=== PATIENT | male | born 1950 | race Asian ===

== ENCOUNTER → 2016-11-02 | Outpatient (CLI) | payer BC ==
[~2016-11-02] MED LIST: ACET-749 PO; AMLO-114 PO; ASPI81TA28 PO; CLC100 PO; LISI-729 PO
[2016-11-02 10:10] LABS: HEMATOCRIT 41.7 % (42-52); MEAN CELL VOLUME 92.1 fL (80-100); MEAN CORPUSCULAR HEMOGLOBIN 32.5 pg (25-34); MEAN CORPUSCULAR HGB CONC 35.3 g/dl (32-36); MEAN PLATELET VOLUME 9.1 fL (7.4-10.4); PLATELET COUNT 223 K/uL (130-400); RED BLOOD COUNT 4.53 M/uL (4.7-6.1)
[2016-11-02 10:16] LABS: URINE APPEARANCE CLEAR (CLEAR); URINE BILIRUBIN NEG (NEG); URINE COLOR YELLOW; URINE NITRITE NEG (NEG); URINE SPECIFIC GRAVITY 1.018 (1.000-1.030); UROBILINOGEN NEG (NEG)
[2016-11-02 10:32] LABS: MANUAL MICROSCOPIC REQUIRED? NO; REVIEW REQ? NO
[2016-11-02 10:44] LABS: URINE PROTIEN/CREAT RATIO 0.5 (0-0.2); URINE TOTAL PROTEIN 65.3 mg/dl (0-11.9)
[2016-11-02 11:21] LABS: ALT/SGPT 23 U/L (12-78); AST/SGOT 13 U/L (15-37); BLOOD UREA NITROGEN 21 mg/dl (7-18); BUN/CREATININE RATIO 15.2 (10-20); CALCIUM 8.6 mg/dl (8.5-10.1); CARBON DIOXIDE 28 mmol/L (21-32); CHLORIDE 108 mmol/L (98-107); GLUCOSE 96 mg/dl (70-99); SODIUM 143 mmol/L (136-145)
[2016-11-02 11:24] LABS: ALB/GLOB RATIO 1.1 (0.9-2); ALKALINE PHOSPHATASE 84 U/L (45-117); CHOLESTEROL 209 mg/dl (0-200); CHOLESTEROL/HDL RATIO 3.7; HDL CHOLESTEROL 57 mg/dl; LDL CHOLESTEROL CALCULATED 128 mg/dl; PHOSPHORUS 2.4 mg/dl (2.5-4.9); TRIGLYCERIDES 121 mg/dl (0-150); VERY LOW DENSITY LIPOPROT CALC 24 mg/dl
== END | disposition home or self-care (01) ==
LOC: C.LAB1850 09:09
PROVIDERS: ATTEND Family Medicine
DX: Z00.00 Encounter for general adult medical examination without abnormal findings (principal); E55.9 Vitamin D deficiency, unspecified

== ENCOUNTER → 2017-05-13 | Outpatient (CLI) | payer BC ==
[2017-05-13 12:11] LABS: HEMATOCRIT 42.7 % (42-52); MEAN CELL VOLUME 94.5 fL (80-100); MEAN CORPUSCULAR HEMOGLOBIN 32.5 pg (25-34); MEAN CORPUSCULAR HGB CONC 34.4 g/dl (32-36); MEAN PLATELET VOLUME 9.7 fL (7.4-10.4); PLATELET COUNT 213 K/uL (130-400); RED BLOOD COUNT 4.52 M/uL (4.7-6.1); WHITE BLOOD COUNT 5.73 K/uL (4.8-10.8)
[2017-05-13 12:23] LABS: BLOOD UREA NITROGEN 22 mg/dl (7-18); BUN/CREATININE RATIO 14.7 (10-20); CALCIUM 9.5 mg/dl (8.5-10.1); CARBON DIOXIDE 30 mmol/L (21-32); CHLORIDE 105 mmol/L (98-107); GLUCOSE 113 mg/dl (70-99); POTASSIUM 3.8 mmol/L (3.5-5.1); SODIUM 139 mmol/L (136-145)
[2017-05-13 12:27] LABS: CHOLESTEROL 205 mg/dl (0-200); CHOLESTEROL/HDL RATIO 3.6; HDL CHOLESTEROL 57 mg/dl; LDL CHOLESTEROL CALCULATED 114 mg/dl; PHOSPHORUS 2.7 mg/dl (2.5-4.9); TRIGLYCERIDES 170 mg/dl (0-150); VERY LOW DENSITY LIPOPROT CALC 34 mg/dl
[2017-05-13 14:18] LABS: URINE APPEARANCE CLEAR (CLEAR); URINE BILIRUBIN NEG (NEG); URINE COLOR YELLOW; URINE NITRITE NEG (NEG); URINE PH 5.5 (4.5-7.5); URINE PROTIEN/CREAT RATIO 0.2 (0-0.2); URINE SPECIFIC GRAVITY 1.022 (1.000-1.030); URINE TOTAL PROTEIN 37.2 mg/dl (0-11.9); UROBILINOGEN NEG (NEG)
[2017-05-13 14:21] LABS: MANUAL MICROSCOPIC REQUIRED? NO; REVIEW REQ? NO
== END | disposition home or self-care (01) ==
LOC: C.LAB1850 10:32
PROVIDERS: ATTEND Internal Medicine Nephrology
DX: D17.71 Benign lipomatous neoplasm of kidney (principal); N18.3 Chronic kidney disease, stage 3 (moderate); Z86.2 Personal history of diseases of the blood and blood-forming organs and certain disorders involving the immune mechanism; I10 Essential (primary) hypertension; R80.9 Proteinuria, unspecified; E55.9 Vitamin D deficiency, unspecified; N40.1 Benign prostatic hyperplasia with lower urinary tract symptoms; Z11.59 Encounter for screening for other viral diseases; E78.5 Hyperlipidemia, unspecified

== ENCOUNTER → 2017-07-04 | Outpatient (CLI) | payer BC ==
[~2017-07-04] MED LIST changes: +OPTIRAY 320 IV PRN
--- NOTE | 2017-07-04 10:54 | DIAGNOSTIC IMAGING REPORT ---
ABDOMEN CT WITH AND WITHOUT IV CONTRAST, RENAL PROTOCOL CT DOSE: 557.91 mGycm HISTORY: Renal cancer. Prior right-sided Nephrectomy. TECHNIQUE: Multiaxial CT images of the abdomen were performed both before and after the use of intravenous contrast to evaluate the kidneys. A dose lowering technique was utilized adhering to the principles of ALARA. COMPARISON STUDY: Abdomen and pelvis CT 07/02/2016. FINDINGS: There again noted a few scattered peripheral groundglass nodules seen within the lung bases with the largest measuring 5 mm. These remain unchanged from the prior study. No suspicious lytic or blastic osseous lesions within the visualized osseous structures. Cholelithiasis. No hepatic or splenic masses. Normal adrenal glands and pancreas. Prior right nephrectomy. No soft tissue masses within the nephrectomy bed to suggest recurrent disease. No retroperitoneal lymphadenopathy. No change in the 5 mm fat-containing lesion within the interpolar region of the left kidney. This is consistent with an angiomyolipoma. There is also stable 2 mm fat-containing lesion within the left kidney on image 151. This is also consistent with an angiomyolipoma. No new masses identified within the left kidney. No left-sided renal stones or hydronephrosis. The visualized loops of bowel show no wall thickening or obstruction. No suspicious filling defects seen within the left renal collecting system or visualized left ureter. IMPRESSION: 1. Prior right nephrectomy. No evidence for recurrent or metastatic disease within the abdomen. 2. 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 3. Stable subcentimeter groundglass nodules within the lung bases. These favor mild inflammatory/infectious change given the long-term stability. Electronically signed by: Sivakumar Rosa M.D. 07/04/2017 10:53 AM Dictated Date/Time: 07/04/2017 10:45 AM
== END | disposition home or self-care (01) ==
LOC: C.CTS 09:50
PROVIDERS: ATTEND Urology
DX: D17.71 Benign lipomatous neoplasm of kidney (principal); Z90.5 Acquired absence of kidney

== ENCOUNTER → 2017-10-28 | Outpatient (CLI) | payer BC ==
[~2017-10-28] MED LIST changes: -OPTIRAY 320 IV PRN
[2017-10-28 12:02] LABS: HEMATOCRIT 40.3 % (42-52); HEMOGLOBIN 14.4 g/dL (14.0-18.0); MEAN CELL VOLUME 93.7 fL (80-100); MEAN CORPUSCULAR HEMOGLOBIN 33.5 pg (25-34); MEAN CORPUSCULAR HGB CONC 35.7 g/dl (32-36); MEAN PLATELET VOLUME 9.2 fL (7.4-10.4); PLATELET COUNT 202 K/uL (130-400); RED CELL DISTRIBUTION WIDTH SD 40.2 fL (36.4-46.3); WHITE BLOOD COUNT 5.02 K/uL (4.8-10.8)
[2017-10-28 12:33] LABS: ALBUMIN 3.7 gm/dl (3.4-5.0); BLOOD UREA NITROGEN 23 mg/dl (7-18); CALCIUM 8.5 mg/dl (8.5-10.1); CARBON DIOXIDE 27 mmol/L (21-32); GLUCOSE 102 mg/dl (70-99); POTASSIUM 3.6 mmol/L (3.5-5.1); SODIUM 139 mmol/L (136-145)
[2017-10-28 12:38] LABS: PHOSPHORUS 2.8 mg/dl (2.5-4.9)
== END | disposition home or self-care (01) ==
LOC: C.LAB1850 11:01
PROVIDERS: ATTEND Internal Medicine Nephrology
DX: I12.9 Hypertensive chronic kidney disease with stage 1 through stage 4 chronic kidney disease, or unspecified chronic kidney disease (principal); R80.9 Proteinuria, unspecified; N18.3 Chronic kidney disease, stage 3 (moderate); N40.1 Benign prostatic hyperplasia with lower urinary tract symptoms; E55.9 Vitamin D deficiency, unspecified; Q60.0 Renal agenesis, unilateral